=== PATIENT | male | born 1950 | race Caucasian/White ===

== ENCOUNTER 2017-04-19 13:42 | Emergency (ER) | payer MEDICARE, BC ==
[~2017-04-19] VITALS: Ht 177.8 cm; Wt 82.6 kg
[2017-04-19] MEDS ORDERED: INSU100V8 SQ (14:28)
[2017-04-19] MEDS ORDERED: OXYC-302 PO (14:28)
[2017-04-19] MEDS ORDERED: GABA-826 PO (14:28)
[2017-04-19 15:34] VITALS: BP 122/72
== END 2017-04-19 16:07 | disposition home or self-care (01) ==
LOC: ED 14:51
DX: S42.212A Unspecified displaced fracture of surgical neck of left humerus, initial encounter for closed fracture (principal); E11.9 Type 2 diabetes mellitus without complications; W01.0XXA Fall on same level from slipping, tripping and stumbling without subsequent striking against object, initial encounter; Y93.01 Activity, walking, marching and hiking; Y92.89 Other specified places as the place of occurrence of the external cause; Y99.9 Unspecified external cause status
CPT/HCPCS: 29105; 99283